=== PATIENT | male | born 1985 | race Caucasian/White ===

== ENCOUNTER 2017-12-26 09:19 | Emergency (ER) | payer OTHER ==
[~2017-12-26] VITALS: Ht 180.3 cm; Wt 86.2 kg
[2017-12-26 10:25] LABS: Influenza A Negative (NEGATIVE); Influenza B Positive (NEGATIVE)
[2017-12-26] MEDS ORDERED: Sudogest30 MG PO (10:30)
[2017-12-26] MEDS ORDERED: BENZ100A PO (10:30)
[2017-12-26] MEDS ORDERED: Flonase 0.05% N16 GM (10:30)
[2017-12-26] MEDS ORDERED: ALBU90OI INH (10:30)
[2017-12-26] MEDS ORDERED: Cheratussin AC118 ML PO (10:30)
[2018-04-12] MEDS ORDERED: NYST237S MT (22:02)
== END 2017-12-26 10:42 | disposition home or self-care (01) ==
LOC: ER 09:19
PROVIDERS: Physician Assistant
DX: J10.1 Influenza due to other identified influenza virus with other respiratory manifestations (principal); F17.210 Nicotine dependence, cigarettes, uncomplicated
CPT/HCPCS: 71046; 87804; 94640; 99284; J1100

== ENCOUNTER 2018-02-07 17:52 | Emergency (ER) | payer OTHER ==
[~2018-02-07] VITALS: Ht 180.3 cm; Wt 86.2 kg
[~2018-02-07 17:52] MED LIST: ALBU90OI INH; BENZ100A PO; Cheratussin AC118 ML PO; Flonase 0.05% N16 GM; Sudogest30 MG PO
[2018-02-07 20:13] LABS: BASOPHILS ABSOLUTE AUTO 0.06 K/mm3 (0.00-0.23); BASOPHILS PERCENT AUTO 1 % (0-2); EOSINOPHILS ABSOLUTE AUTO 0.13 K/mm3 (0.00-0.68); EOSINOPHILS PERCENT AUTO 2 % (0-6); Hematocrit 47.3 % (37.0-53.0); IMMATURE GRAN ABSOLUTE AUTO 0.02 K/mm3 (0.00-0.10); IMMATURE GRAN PERCENT AUTO 0 % (0-1); LYMPHOCYTES PERCENT AUTO 32 % (21-46); MONOCYTES ABSOLUTE AUTO 0.43 K/mm3 (0.16-1.47); MONOCYTES PERCENT AUTO 6 % (4-13); Mean Corpuscular HGB 30.1 pg (26.0-34.0); Mean Corpuscular HGB Conc 33.8 g/dL (31.5-36.5); Mean Corpuscular Volume 89 fL (80-100); Mean Platelet Volume 9.9 fL (9.1-12.4); NEUTROPHILS ABSOLUTE AUTO 4.63 K/mm3 (1.96-9.15); NEUTROPHILS PERCENT AUTO 60 % (41-73); Platelet Count 319 K/mm3 (150-400); RDW Coefficient Variation 11.9 % (11.7-14.2); Red Blood Cell Count 5.31 M/mm3 (4.30-5.90); White Blood Cell Count 7.77 K/mm3 (4.00-11.30)
[2018-02-07 20:17] LABS: Alanine Aminotransfer (ALT/SGP 30 U/L (12-78); Albumin, Blood 4.1 g/dL (3.4-5.0); Albumin/Globulin Ratio 1.2 (0.8-1.8); Alk Phos 69 U/L (50-136); Anion Gap 7 mmol/L (6-16); Aspartate Aminotrans (AST/SGOT 24 U/L (12-37); Bilirubin, Total 0.3 mg/dL (0.1-1.0); Blood Urea Nitrogen 13 mg/dL (8-24); Bun/Creatinine Ratio 13.1 (12.0-20.0); CO2, Blood 28 mmol/L (21-32); Chloride, Blood 104 mmol/L (98-108); Globulin, Blood 3.5 g/dL (2.2-4.0); Glomerular Filtration Rate >60 (60-); Glucose, Blood 87 mg/dL (70-99); Sodium, Blood 139 mmol/L (136-145); Total Protein, Blood 7.6 g/dL (6.4-8.2)
[2018-02-10 07:50] LABS: HCV Non Reactive (NR)
[2018-04-12] MEDS ORDERED: NYST237S MT (22:02)
== END 2018-02-07 21:12 | disposition home or self-care (01) ==
LOC: ER 17:52
PROVIDERS: Emergency Medicine
DX: Z20.5 Contact with and (suspected) exposure to viral hepatitis (principal); N48.89 Other specified disorders of penis; F17.210 Nicotine dependence, cigarettes, uncomplicated
CPT/HCPCS: 36415; 80053; 80074; 85025; 99283

== ENCOUNTER 2018-05-17 12:52 | Emergency (ER) | payer OTHER ==
[~2018-05-17] VITALS: Ht 180.3 cm; Wt 81.7 kg
[~2018-05-17 12:52] MED LIST changes: +NYST237S MT
[2018-05-17] MEDS ORDERED: Augmentin 875-1 EACH PO (14:39)
== END 2018-05-17 15:38 | disposition home or self-care (01) ==
LOC: ER 12:52
DX: J02.9 Acute pharyngitis, unspecified (principal); F17.210 Nicotine dependence, cigarettes, uncomplicated
CPT/HCPCS: 70491; 87081; 87430; 96361; 96365; 96375; 99284; J0295; J1100; J7030; Q9967

== ENCOUNTER 2019-01-26 16:42 | Emergency (ER) | payer OTHER ==
[~2019-01-26] VITALS: Ht 180.3 cm; Wt 93.0 kg
[~2019-01-26 16:42] MED LIST changes: +Augmentin 875-1 EACH PO
[2019-01-26] MEDS ORDERED: Norco 5-325 Ta1 EACH PO (17:56)
== END 2019-01-26 18:11 | disposition home or self-care (01) ==
LOC: ER 16:42
DX: S20.212A Contusion of left front wall of thorax, initial encounter (principal); M25.512 Pain in left shoulder; F17.210 Nicotine dependence, cigarettes, uncomplicated; W00.0XXA Fall on same level due to ice and snow, initial encounter
CPT/HCPCS: 71101; 73010; 99283-25

== ENCOUNTER 2019-07-04 12:00 | Day surgery (SDC) | payer OTHER ==
[~2019-07-04] VITALS: Ht 180.3 cm; Wt 85.2 kg
[~2019-07-04 12:00] MED LIST changes: +Norco 5-325 Ta1 EACH PO
== END 2019-07-04 16:24 | disposition home or self-care (01) ==
LOC: ORSCSDS 12:00
PROVIDERS: Student in an Organized Health Care Education/Training Program
PROC: 0DBK8ZX Excision of Ascending Colon, Via Natural or Artificial Opening Endoscopic, Diagnostic (ICD-10-PCS; principal; 2019-07-04 13:15)
PROC: 0DBL8ZX Excision of Transverse Colon, Via Natural or Artificial Opening Endoscopic, Diagnostic (ICD-10-PCS; principal; 2019-07-04 13:15)
DX: K92.1 Melena (principal); R19.4 Change in bowel habit; D12.2 Benign neoplasm of ascending colon; D12.3 Benign neoplasm of transverse colon; K57.30 Diverticulosis of large intestine without perforation or abscess without bleeding; K64.8 Other hemorrhoids; F17.210 Nicotine dependence, cigarettes, uncomplicated
CPT/HCPCS: 88305; J2250; J2704; J7120

== ENCOUNTER 2019-11-07 05:38 | Emergency (ER) | payer OTHER ==
[~2019-11-07] VITALS: Ht 180.3 cm; Wt 83.9 kg
[2019-11-07 06:35] LABS: BASOPHILS ABSOLUTE AUTO 0.05 K/mm3 (0.00-0.23); BASOPHILS PERCENT AUTO 1 % (0-2); EOSINOPHILS ABSOLUTE AUTO 0.14 K/mm3 (0.00-0.68); EOSINOPHILS PERCENT AUTO 2 % (0-6); Hematocrit 50.6 % (37.0-53.0); Hemoglobin 17.4 g/dL (13.5-17.5); IMMATURE GRAN ABSOLUTE AUTO 0.02 K/mm3 (0.00-0.10); IMMATURE GRAN PERCENT AUTO 0 % (0-1); LYMPHOCYTES ABSOLUTE AUTO 2.45 K/mm3 (0.84-5.20); LYMPHOCYTES PERCENT AUTO 30 % (21-46); MONOCYTES ABSOLUTE AUTO 0.49 K/mm3 (0.16-1.47); MONOCYTES PERCENT AUTO 6 % (4-13); Mean Corpuscular HGB 30.9 pg (26.0-34.0); Mean Corpuscular HGB Conc 34.4 g/dL (31.5-36.5); Mean Corpuscular Volume 90 fL (80-100); Mean Platelet Volume 10.5 fL (9.1-12.4); NEUTROPHILS ABSOLUTE AUTO 5.09 K/mm3 (1.96-9.15); NEUTROPHILS PERCENT AUTO 62 % (41-73); Platelet Count 348 K/mm3 (150-400); RDW Coefficient Variation 11.5 % (11.7-14.2); Red Blood Cell Count 5.63 M/mm3 (4.30-5.90); White Blood Cell Count 8.24 K/mm3 (4.00-11.30)
[2019-11-07 06:53] LABS: Alanine Aminotransfer (ALT/SGP 22 U/L (12-78); Albumin, Blood 4.5 g/dL (3.4-5.0); Albumin/Globulin Ratio 1.2 (0.8-1.8); Alk Phos 69 U/L (50-136); Anion Gap 10 mmol/L (6-16); Aspartate Aminotrans (AST/SGOT 20 U/L (12-37); Bilirubin, Total 0.7 mg/dL (0.1-1.0); Blood Urea Nitrogen 9 mg/dL (8-24); Bun/Creatinine Ratio 10.5 (12.0-20.0); CO2, Blood 23 mmol/L (21-32); Chloride, Blood 108 mmol/L (98-108); Creatinine, Blood 0.86 mg/dL (0.60-1.20); Globulin, Blood 3.6 g/dL (2.2-4.0); Glomerular Filtration Rate >60 (60-); Glucose, Blood 86 mg/dL (70-99); Potassium, Blood 3.8 mmol/L (3.5-5.5); Sodium, Blood 141 mmol/L (136-145); Total Protein, Blood 8.1 g/dL (6.4-8.2)
[2019-11-07] MEDS ORDERED: Prilosec Otc20 MG PO (09:05)
== END 2019-11-07 09:16 | disposition home or self-care (01) ==
LOC: ER 05:38
PROVIDERS: Emergency Medicine
DX: R07.9 Chest pain, unspecified (principal); R10.13 Epigastric pain; F10.10 Alcohol abuse, uncomplicated; R11.2 Nausea with vomiting, unspecified; F17.210 Nicotine dependence, cigarettes, uncomplicated
CPT/HCPCS: 36415; 71046; 80053; 83690; 85025; 93005; 93010; 96361; 96374; 96375; 99284-25; C9113; J2060; J2405; J2765; J7030

== ENCOUNTER 2019-11-09 05:46 | Emergency (ER) | payer OTHER ==
[~2019-11-09] VITALS: Ht 180.3 cm; Wt 81.7 kg
[~2019-11-09 05:46] MED LIST changes: +Prilosec Otc20 MG PO
[2019-11-09 07:08] LABS: BASOPHILS ABSOLUTE AUTO 0.06 K/mm3 (0.00-0.23); BASOPHILS PERCENT AUTO 1 % (0-2); EOSINOPHILS ABSOLUTE AUTO 0.17 K/mm3 (0.00-0.68); EOSINOPHILS PERCENT AUTO 2 % (0-6); Hematocrit 47.4 % (37.0-53.0); Hemoglobin 16.7 g/dL (13.5-17.5); IMMATURE GRAN ABSOLUTE AUTO 0.04 K/mm3 (0.00-0.10); IMMATURE GRAN PERCENT AUTO 0 % (0-1); LYMPHOCYTES ABSOLUTE AUTO 1.93 K/mm3 (0.84-5.20); LYMPHOCYTES PERCENT AUTO 18 % (21-46); MONOCYTES ABSOLUTE AUTO 0.63 K/mm3 (0.16-1.47); MONOCYTES PERCENT AUTO 6 % (4-13); Mean Corpuscular HGB 31.4 pg (26.0-34.0); Mean Corpuscular HGB Conc 35.2 g/dL (31.5-36.5); Mean Corpuscular Volume 89 fL (80-100); Mean Platelet Volume 10.2 fL (9.1-12.4); NEUTROPHILS ABSOLUTE AUTO 7.75 K/mm3 (1.96-9.15); NEUTROPHILS PERCENT AUTO 73 % (41-73); Platelet Count 339 K/mm3 (150-400); RDW Coefficient Variation 11.5 % (11.7-14.2); RDW Standard Deviation 37.3 fL (35.1-46.3); Red Blood Cell Count 5.32 M/mm3 (4.30-5.90); White Blood Cell Count 10.58 K/mm3 (4.00-11.30)
[2019-11-09 07:25] LABS: Alanine Aminotransfer (ALT/SGP 22 U/L (12-78); Albumin, Blood 4.4 g/dL (3.4-5.0); Albumin/Globulin Ratio 1.3 (0.8-1.8); Alk Phos 66 U/L (50-136); Anion Gap 11 mmol/L (6-16); Aspartate Aminotrans (AST/SGOT 25 U/L (12-37); Bilirubin, Total 1.1 mg/dL (0.1-1.0); Blood Urea Nitrogen 9 mg/dL (8-24); Bun/Creatinine Ratio 11.4 (12.0-20.0); CO2, Blood 22 mmol/L (21-32); Calcium, Blood 9.3 mg/dL (8.5-10.1); Chloride, Blood 107 mmol/L (98-108); Creatinine, Blood 0.79 mg/dL (0.60-1.20); Globulin, Blood 3.3 g/dL (2.2-4.0); Glomerular Filtration Rate >60 (60-); Glucose, Blood 100 mg/dL (70-99); Potassium, Blood 3.2 mmol/L (3.5-5.5); Sodium, Blood 140 mmol/L (136-145); Total Protein, Blood 7.7 g/dL (6.4-8.2)
[2019-11-09 07:52] LABS: Source, Urine Clean Catch
[2019-11-09 08:01] LABS: Bilirubin, Urine Neg (Neg); Blood, Urine Neg (Neg); Glucose Qualitative, Urine Neg (Neg); Ketones, Urine 4+ (Neg); Leukocyte Esterase, Urine 1+ (Neg); Nitrite, Urine Neg (Neg); Protein, Urine Neg (Neg); Specific Gravity, Urine 1.015 (1.003-1.022); Urobilinogen, Urine NORM (Normal)
[2019-11-09 08:05] LABS: Appearance, Urine Clear (Clear); Color, Urine Amber (P-Yellow)
[2019-11-09 08:08] LABS: Amorphous Light (0-Heavy); Bacteria Not Seen /hpf; Mucus Heavy (0-Heavy); Red Blood Cells, Urine Not Seen /hpf (0-2); Squamous Epithelial Cells Not Seen /hpf (Few); White Blood Cells, Urine 0-2 /hpf (0-5)
[2019-11-09] MEDS ORDERED: PROM25 PO (10:12)
[2019-11-09] MEDS ORDERED: OMEPRAZOLE MAGN20 MG PO (10:12)
== END 2019-11-09 10:22 | disposition home or self-care (01) ==
LOC: ER 05:46
PROVIDERS: Emergency Medicine
DX: K29.70 Gastritis, unspecified, without bleeding (principal); E86.0 Dehydration; E87.6 Hypokalemia; F17.210 Nicotine dependence, cigarettes, uncomplicated
CPT/HCPCS: 36415; 80053; 81001; 82272; 83690; 84484; 85025; 93005; 93010; 96361; 96374; 96375; 99284-25; C9113; J1170; J2405; J2550; J7120

== ENCOUNTER 2020-05-02 14:58 | Emergency (ER) | payer OTHER ==
[~2020-05-02] VITALS: Ht 180.3 cm; Wt 72.6 kg
[~2020-05-02 14:58] MED LIST changes: +OMEPRAZOLE MAGN20 MG PO; +PROM25 PO
[2020-05-02 15:34] LABS: BASOPHILS ABSOLUTE AUTO 0.06 K/mm3 (0.00-0.23); BASOPHILS PERCENT AUTO 1 % (0-2); EOSINOPHILS ABSOLUTE AUTO 0.01 K/mm3 (0.00-0.68); EOSINOPHILS PERCENT AUTO 0 % (0-6); Hematocrit 50.9 % (37.0-53.0); Hemoglobin 17.2 g/dL (13.5-17.5); IMMATURE GRAN ABSOLUTE AUTO 0.06 K/mm3 (0.00-0.10); IMMATURE GRAN PERCENT AUTO 1 % (0-1); LYMPHOCYTES PERCENT AUTO 10 % (21-46); MONOCYTES ABSOLUTE AUTO 0.42 K/mm3 (0.16-1.47); MONOCYTES PERCENT AUTO 3 % (4-13); Mean Corpuscular HGB 31.2 pg (26.0-34.0); Mean Corpuscular HGB Conc 33.8 g/dL (31.5-36.5); Mean Corpuscular Volume 92 fL (80-100); NEUTROPHILS ABSOLUTE AUTO 11.26 K/mm3 (1.96-9.15); NEUTROPHILS PERCENT AUTO 86 % (41-73); Platelet Count 375 K/mm3 (150-400); RDW Coefficient Variation 11.8 % (11.7-14.2); Red Blood Cell Count 5.51 M/mm3 (4.30-5.90); White Blood Cell Count 13.11 K/mm3 (4.00-11.30)
[2020-05-02 15:41] LABS: Source, Urine Clean Catch
[2020-05-02 15:48] LABS: Bilirubin, Urine Neg (Neg); Blood, Urine 1+ (Neg); Glucose Qualitative, Urine Neg (Neg); Ketones, Urine 4+ (Neg); Leukocyte Esterase, Urine 1+ (Neg); Nitrite, Urine Neg (Neg); Protein, Urine 1+ (Neg); Urobilinogen, Urine NORM (Normal)
[2020-05-02 15:55] LABS: Alanine Aminotransfer (ALT/SGP 28 U/L (12-78); Albumin, Blood 4.6 g/dL (3.4-5.0); Albumin/Globulin Ratio 1.3 (0.8-1.8); Alk Phos 69 U/L (50-136); Anion Gap 10 mmol/L (6-16); Aspartate Aminotrans (AST/SGOT 19 U/L (12-37); Blood Urea Nitrogen 17 mg/dL (8-24); Bun/Creatinine Ratio 21.5 (12.0-20.0); CO2, Blood 24 mmol/L (21-32); Calcium, Blood 9.9 mg/dL (8.5-10.1); Chloride, Blood 104 mmol/L (98-108); Creatinine, Blood 0.79 mg/dL (0.60-1.20); Globulin, Blood 3.6 g/dL (2.2-4.0); Glomerular Filtration Rate >60 (60-); Glucose, Blood 105 mg/dL (70-99); Potassium, Blood 4.2 mmol/L (3.5-5.5); Sodium, Blood 138 mmol/L (136-145); Total Protein, Blood 8.2 g/dL (6.4-8.2)
[2020-05-02 16:04] LABS: Appearance, Urine Clear (Clear); Color, Urine Yellow (P-Yellow)
[2020-05-02 16:05] LABS: U Amphetamine Screen Not Detected; U Barbituate Screen Not Detected; U Benzodiazapine Screen Not Detected; U Buprenorphine Screen Not Detected; U Cannabinoids Screen DETECTED; U Cocaine Screen Not Detected; U Methadone Screen Not Detected; U Methamphetamine Screen Not Detected; U Opiates Screen Not Detected; U Oxycodone Screen Not Detected; U Phencyclidine Screen Not Detected; U Propoxyphene Screen Not Detected; White Blood Cells, Urine 0-2 /hpf (0-5)
[2020-05-02 16:06] LABS: Bacteria Few /hpf; Mucus Light (0-Heavy); Squamous Epithelial Cells Not Seen /hpf (Few)
[2020-05-02] MEDS ORDERED: PHENERGAN25 MG PR (17:10)
[2020-05-02] MEDS ORDERED: PROM25 PO (17:10)
[2020-05-02] MEDS ORDERED: Protonix40 MG PO (17:10)
== END 2020-05-02 18:02 | disposition home or self-care (01) ==
LOC: ER 14:58
PROVIDERS: Emergency Medicine
DX: R10.31 Right lower quadrant pain (principal); R11.10 Vomiting, unspecified; F17.210 Nicotine dependence, cigarettes, uncomplicated; Z79.899 Other long term (current) drug therapy
CPT/HCPCS: 36415; 80053; 81001; 83690; 85025; 87086; 96361; 96374; 96375; 99284-25; C9113; G0480; J2060; J2405; J2765; J7030

== ENCOUNTER 2020-12-17 08:24 | Day surgery (SDC) | payer OTHER ==
[~2020-12-17] VITALS: Ht 180.3 cm; Wt 69.7 kg
[~2020-12-17 08:24] MED LIST changes: +OMEP20ER PO; +ONDA4 PO; +PHENERGAN25 MG PR; +Protonix40 MG PO
== END 2020-12-17 10:35 | disposition home or self-care (01) ==
LOC: ORSCSDS 08:24
PROVIDERS: Student in an Organized Health Care Education/Training Program
PROC: 0DBN8ZX Excision of Sigmoid Colon, Via Natural or Artificial Opening Endoscopic, Diagnostic (ICD-10-PCS; principal; 2020-12-17 09:45)
PROC: 0DBC8ZX Excision of Ileocecal Valve, Via Natural or Artificial Opening Endoscopic, Diagnostic (ICD-10-PCS; principal; 2020-12-17 09:45)
DX: Z86.010 Personal history of colon polyps (principal); K63.5 Polyp of colon; K57.30 Diverticulosis of large intestine without perforation or abscess without bleeding; K64.8 Other hemorrhoids; F17.210 Nicotine dependence, cigarettes, uncomplicated; Z79.899 Other long term (current) drug therapy
CPT/HCPCS: 88305; J2250; J2704; J7120

== ENCOUNTER 2021-05-02 18:21 | Emergency (ER) | payer OTHER ==
[~2021-05-02] VITALS: Ht 180.3 cm; Wt 74.8 kg
[2021-05-02 19:02] LABS: BASOPHILS ABSOLUTE AUTO 0.02 K/mm3 (0.00-0.23); BASOPHILS PERCENT AUTO 0 % (0-2); EOSINOPHILS PERCENT AUTO 0 % (0-6); Hematocrit 48.9 % (37.0-53.0); Hemoglobin 16.7 g/dL (13.5-17.5); IMMATURE GRAN ABSOLUTE AUTO 0.02 K/mm3 (0.00-0.10); IMMATURE GRAN PERCENT AUTO 0 % (0-1); LYMPHOCYTES ABSOLUTE AUTO 1.32 K/mm3 (0.84-5.20); LYMPHOCYTES PERCENT AUTO 15 % (21-46); MONOCYTES ABSOLUTE AUTO 0.37 K/mm3 (0.16-1.47); MONOCYTES PERCENT AUTO 4 % (4-13); Mean Corpuscular HGB 30.9 pg (26.0-34.0); Mean Corpuscular HGB Conc 34.2 g/dL (31.5-36.5); Mean Corpuscular Volume 91 fL (80-100); Mean Platelet Volume 9.9 fL (9.1-12.4); NEUTROPHILS ABSOLUTE AUTO 6.82 K/mm3 (1.96-9.15); NEUTROPHILS PERCENT AUTO 80 % (41-73); Platelet Count 341 K/mm3 (150-400); RDW Coefficient Variation 11.4 % (11.7-14.2); White Blood Cell Count 8.55 K/mm3 (4.00-11.30)
[2021-05-02 19:21] LABS: Alanine Aminotransfer (ALT/SGP 26 U/L (12-78); Albumin, Blood 4.6 g/dL (3.4-5.0); Albumin/Globulin Ratio 1.2 (0.8-1.8); Alk Phos 69 U/L (50-136); Anion Gap 4 mmol/L (6-16); Aspartate Aminotrans (AST/SGOT 16 U/L (12-37); Bilirubin, Total 0.7 mg/dL (0.1-1.0); Blood Urea Nitrogen 14 mg/dL (8-24); Bun/Creatinine Ratio 13.2 (12.0-20.0); CO2, Blood 29 mmol/L (21-32); Chloride, Blood 106 mmol/L (98-108); Creatinine, Blood 1.06 mg/dL (0.60-1.20); Globulin, Blood 3.8 g/dL (2.2-4.0); Glomerular Filtration Rate >60 (60-); Glucose, Blood 122 mg/dL (70-99); Potassium, Blood 4.2 mmol/L (3.5-5.5); Sodium, Blood 139 mmol/L (136-145); Total Protein, Blood 8.4 g/dL (6.4-8.2)
[2021-05-02 21:56] LABS: Source, Urine Voided
[2021-05-02 22:03] LABS: Bilirubin, Urine Neg (Neg); Blood, Urine 1+ (Neg); Glucose Qualitative, Urine Neg (Neg); Ketones, Urine 4+ (Neg); Leukocyte Esterase, Urine 1+ (Neg); Nitrite, Urine Neg (Neg); Protein, Urine 2+ (Neg); Specific Gravity, Urine 1.015 (1.003-1.022); Urobilinogen, Urine NORM (Normal)
[2021-05-02 22:12] LABS: Appearance, Urine Clear (Clear); Color, Urine Yellow (P-Yellow)
[2021-05-02 22:13] LABS: Amorphous Light (0-Heavy); Bacteria Few /hpf; Mucus Light (0-Heavy); Squamous Epithelial Cells Rare /hpf (Few)
[2021-05-03] MEDS ORDERED: PROM25 PO (00:01)
[2021-05-03] MEDS ORDERED: HYDR1TAB94 PO (00:01)
== END 2021-05-03 00:10 | disposition home or self-care (01) ==
LOC: ER 18:21
PROVIDERS: Physician Assistant
DX: K85.90 Acute pancreatitis without necrosis or infection, unspecified (principal); F17.210 Nicotine dependence, cigarettes, uncomplicated
CPT/HCPCS: 36415; 74177; 80053; 81001; 83690; 85025; 96361; 96374-59; 96375; 99284-25; J1790; J2405; J7030; Q9967

== ENCOUNTER 2021-07-14 08:54 | Emergency (ER) | payer OTHER ==
[~2021-07-14] VITALS: Ht 180.3 cm; Wt 74.4 kg
[~2021-07-14 08:54] MED LIST changes: +HYDR1TAB94 PO
[2021-07-14 11:16] LABS: SARS-Cov-2 (COVID-19) PCR, MMC NEGATIVE (NEGATIVE)
== END 2021-07-14 11:35 | disposition home or self-care (01) ==
LOC: ER 08:54
PROVIDERS: Physician Assistant
DX: J06.9 Acute upper respiratory infection, unspecified (principal); F17.210 Nicotine dependence, cigarettes, uncomplicated; Z20.822 Contact with and (suspected) exposure to COVID-19
CPT/HCPCS: 99284; U0004

== ENCOUNTER 2021-07-18 01:46 | Emergency (ER) | payer OTHER ==
[~2021-07-18] VITALS: Ht 180.3 cm; Wt 74.4 kg
[2021-07-18] MEDS ORDERED: IBUP800 PO (02:57)
== END 2021-07-18 03:05 | disposition home or self-care (01) ==
LOC: ER 01:46
DX: U07.1 COVID-19 (principal); F17.210 Nicotine dependence, cigarettes, uncomplicated
CPT/HCPCS: 99282

== ENCOUNTER 2022-02-12 10:14 | Emergency (ER) | payer OTHER ==
[~2022-02-12] VITALS: Ht 180.3 cm; Wt 74.8 kg
[~2022-02-12 10:14] MED LIST changes: +IBUP800 PO
[2022-02-12 11:10] LABS: BASOPHILS ABSOLUTE AUTO 0.07 K/mm3 (0.00-0.23); BASOPHILS PERCENT AUTO 0 % (0-2); EOSINOPHILS ABSOLUTE AUTO 0.28 K/mm3 (0.00-0.68); EOSINOPHILS PERCENT AUTO 2 % (0-6); Hematocrit 51.5 % (37.0-53.0); Hemoglobin 18.1 g/dL (13.5-17.5); IMMATURE GRAN ABSOLUTE AUTO 0.07 K/mm3 (0.00-0.10); IMMATURE GRAN PERCENT AUTO 0 % (0-1); LYMPHOCYTES ABSOLUTE AUTO 1.43 K/mm3 (0.84-5.20); LYMPHOCYTES PERCENT AUTO 9 % (21-46); MONOCYTES ABSOLUTE AUTO 0.59 K/mm3 (0.16-1.47); MONOCYTES PERCENT AUTO 4 % (4-13); Mean Corpuscular HGB 30.7 pg (26.0-34.0); Mean Corpuscular HGB Conc 35.1 g/dL (31.5-36.5); Mean Corpuscular Volume 87 fL (80-100); Mean Platelet Volume 9.9 fL (9.1-12.4); NEUTROPHILS ABSOLUTE AUTO 14.16 K/mm3 (1.96-9.15); NEUTROPHILS PERCENT AUTO 85 % (41-73); Platelet Count 326 K/mm3 (150-400); RDW Coefficient Variation 11.9 % (11.7-14.2); RDW Standard Deviation 38.4 fL (35.1-46.3)
[2022-02-12 11:45] LABS: Alanine Aminotransfer (ALT/SGP 24 U/L (12-78); Albumin, Blood 4.5 g/dL (3.4-5.0); Albumin/Globulin Ratio 1.3 (0.8-1.8); Alk Phos 75 U/L (50-136); Anion Gap 7 mmol/L (6-16); Aspartate Aminotrans (AST/SGOT 17 U/L (12-37); Blood Urea Nitrogen 16 mg/dL (8-24); Bun/Creatinine Ratio 20.4 (12.0-20.0); CO2, Blood 21 mmol/L (21-32); Calcium, Blood 9.7 mg/dL (8.5-10.1); Chloride, Blood 110 mmol/L (98-108); Creatinine, Blood 0.78 mg/dL (0.60-1.20); Globulin, Blood 3.5 g/dL (2.2-4.0); Glomerular Filtration Rate >60 (60-); Glucose, Blood 141 mg/dL (70-99); Potassium, Blood 3.8 mmol/L (3.5-5.5); Sodium, Blood 138 mmol/L (136-145)
[2022-02-12 12:25] LABS: Influenza A, PCR NEGATIVE (NEGATIVE); Influenza B, PCR NEGATIVE (NEGATIVE); Resp Syncytial Virus, PCR NEGATIVE (NEGATIVE); SARS-Cov-2 (COVID-19) PCR, MMC NEGATIVE (NEGATIVE)
[2022-02-12 13:09] LABS: U Amphetamine Screen Not Detected; U Barbituate Screen Not Detected; U Benzodiazapine Screen Not Detected; U Buprenorphine Screen Not Detected; U Cannabinoids Screen DETECTED; U Cocaine Screen Not Detected; U Methadone Screen Not Detected; U Methamphetamine Screen Not Detected; U Opiates Screen Not Detected; U Oxycodone Screen Not Detected; U Phencyclidine Screen Not Detected; U Propoxyphene Screen Not Detected
[2022-02-12] MEDS ORDERED: LOPE2C PO (13:09)
[2022-02-12] MEDS ORDERED: ONDA4ODT MM (13:09)
== END 2022-02-12 14:03 | disposition home or self-care (01) ==
LOC: ER 10:14
PROVIDERS: Emergency Medicine
DX: E86.0 Dehydration (principal); R11.2 Nausea with vomiting, unspecified; R19.7 Diarrhea, unspecified; Z20.822 Contact with and (suspected) exposure to COVID-19; F17.210 Nicotine dependence, cigarettes, uncomplicated
CPT/HCPCS: 0241U; 36415; 80053; 85025; 96361; 96374; 96375; 96376; 99284-25; A9270; J2405; J2765; J7030

== ENCOUNTER 2023-11-21 22:31 | Emergency (ER) | payer SELFPAY ==
[~2023-11-21] VITALS: Ht 180.3 cm; Wt 72.6 kg
[~2023-11-21 22:31] MED LIST changes: +HYDROCORTISONE30 GM PR; +LOPE2C PO; +ONDA4ODT MM
[2023-11-22] MEDS ORDERED: CEPH500 PO (00:26)
[2023-11-22] MEDS ORDERED: SULTRIDS PO (00:26)
[2023-11-22 00:40] VITALS: BP 132/85
== END 2023-11-22 00:43 | disposition home or self-care (01) ==
LOC: ER 22:31
DX: J34.0 Abscess, furuncle and carbuncle of nose (principal); L02.414 Cutaneous abscess of left upper limb; F15.10 Other stimulant abuse, uncomplicated; F17.210 Nicotine dependence, cigarettes, uncomplicated
CPT/HCPCS: 99283; A9270

== ENCOUNTER 2023-12-16 10:54 | Emergency (ER) | payer OTHER ==
[~2023-12-16] VITALS: Ht 180.3 cm; Wt 72.6 kg
[~2023-12-16 10:54] MED LIST changes: +CEPH500 PO; +SULTRIDS PO
[2023-12-16 11:27] LABS: BASOPHILS ABSOLUTE AUTO 0.06 K/mm3 (0.00-0.23); BASOPHILS PERCENT AUTO 1 % (0-2); EOSINOPHILS ABSOLUTE AUTO 0.51 K/mm3 (0.00-0.68); EOSINOPHILS PERCENT AUTO 6 % (0-6); Hematocrit 49.7 % (37.0-53.0); Hemoglobin 16.7 g/dL (13.5-17.5); IMMATURE GRAN ABSOLUTE AUTO 0.02 K/mm3 (0.00-0.10); IMMATURE GRAN PERCENT AUTO 0 % (0-1); LYMPHOCYTES ABSOLUTE AUTO 1.96 K/mm3 (0.84-5.20); LYMPHOCYTES PERCENT AUTO 24 % (21-46); MONOCYTES ABSOLUTE AUTO 0.52 K/mm3 (0.16-1.47); MONOCYTES PERCENT AUTO 6 % (4-13); Mean Corpuscular HGB 30.1 pg (26.0-34.0); Mean Corpuscular HGB Conc 33.6 g/dL (31.5-36.5); Mean Corpuscular Volume 90 fL (80-100); NEUTROPHILS ABSOLUTE AUTO 5.03 K/mm3 (1.96-9.15); NEUTROPHILS PERCENT AUTO 62 % (41-73); Platelet Count 370 K/mm3 (150-400); RDW Standard Deviation 39.8 fL (35.1-46.3); Red Blood Cell Count 5.54 M/mm3 (4.30-5.90)
[2023-12-16 12:37] LABS: Albumin, Blood 3.6 g/dL (3.4-5.0); Albumin/Globulin Ratio 0.9 (0.8-1.8); Bilirubin, Total 0.3 mg/dL (0.1-1.0); Bun/Creatinine Ratio 12.9 (12.0-20.0); Calcium, Blood 9.3 mg/dL (8.5-10.1); Creatinine, Blood 0.86 mg/dL (0.60-1.20); Globulin, Blood 4.2 g/dL (2.2-4.0); Potassium, Blood 4.6 mmol/L (3.5-5.5); Total Protein, Blood 7.8 g/dL (6.4-8.2)
[2023-12-16 13:06] LABS: Source, Urine Clean Catch
[2023-12-16 13:13] LABS: Appearance, Urine Clear (Clear); Bilirubin, Urine Neg (Neg); Blood, Urine Neg (Neg); Color, Urine Yellow (P-Yellow); Glucose Qualitative, Urine Neg (Neg); Ketones, Urine Neg (Neg); Leukocyte Esterase, Urine Neg (Neg); Nitrite, Urine Neg (Neg); Protein, Urine Neg (Neg); Urobilinogen, Urine NORM (Normal)
[2023-12-16 13:30] VITALS: BP 175/91
[2023-12-16] MEDS ORDERED: ACYC400 PO (13:44)
[2023-12-16] MEDS ORDERED: DOXY100 PO (13:44)
[2023-12-18 08:51] LABS: APTIMA MEDIA TYPE Urine; C. TRACHOMATIS BY TMA Negative (Negative); N. GONORRHOEAE BY TMA Negative (Negative); SPECIMEN SOURCE Urine
[2023-12-18 13:50] LABS: HIV 1,2 COMBO ANTIGEN/ANTIBODY Negative (Negative)
== END 2023-12-16 14:11 | disposition home or self-care (01) ==
LOC: ER 10:54
PROVIDERS: Emergency Medicine; Physician Assistant
DX: A60.01 Herpesviral infection of penis (principal); A60.02 Herpesviral infection of other male genital organs; B00.89 Other herpesviral infection; F17.210 Nicotine dependence, cigarettes, uncomplicated
CPT/HCPCS: 80053; 81003; 85025; 86592; 87389; 87491; 87591; 96372; 99284-25; A9270; J0696

== ENCOUNTER 2024-01-03 19:16 | Emergency (ER) | payer OTHER ==
[~2024-01-03] VITALS: Ht 180.3 cm; Wt 70.3 kg
[~2024-01-03 19:16] MED LIST changes: +ACYC400 PO; +DOXY100 PO
[2024-01-03 20:13] LABS: BASOPHILS ABSOLUTE AUTO 0.04 K/mm3 (0.00-0.23); BASOPHILS PERCENT AUTO 1 % (0-2); EOSINOPHILS ABSOLUTE AUTO 0.16 K/mm3 (0.00-0.68); EOSINOPHILS PERCENT AUTO 2 % (0-6); Hematocrit 48.7 % (37.0-53.0); Hemoglobin 16.5 g/dL (13.5-17.5); IMMATURE GRAN ABSOLUTE AUTO 0.01 K/mm3 (0.00-0.10); IMMATURE GRAN PERCENT AUTO 0 % (0-1); LYMPHOCYTES ABSOLUTE AUTO 2.82 K/mm3 (0.84-5.20); LYMPHOCYTES PERCENT AUTO 34 % (21-46); MONOCYTES ABSOLUTE AUTO 0.54 K/mm3 (0.16-1.47); MONOCYTES PERCENT AUTO 7 % (4-13); Mean Corpuscular HGB 30.3 pg (26.0-34.0); Mean Corpuscular HGB Conc 33.9 g/dL (31.5-36.5); Mean Corpuscular Volume 89 fL (80-100); Mean Platelet Volume 8.9 fL (9.1-12.4); NEUTROPHILS ABSOLUTE AUTO 4.75 K/mm3 (1.96-9.15); NEUTROPHILS PERCENT AUTO 57 % (41-73); Platelet Count 405 K/mm3 (150-400); RDW Coefficient Variation 12.3 % (11.7-14.2); RDW Standard Deviation 40.3 fL (35.1-46.3); Red Blood Cell Count 5.45 M/mm3 (4.30-5.90); White Blood Cell Count 8.32 K/mm3 (4.00-11.30)
[2024-01-03 20:35] LABS: Bilirubin, Total 0.4 mg/dL (0.1-1.0); Bun/Creatinine Ratio 12.3 (12.0-20.0); Calcium, Blood 9.6 mg/dL (8.5-10.1); Creatinine, Blood 0.89 mg/dL (0.60-1.20); Globulin, Blood 3.9 g/dL (2.2-4.0); Magnesium, Blood 2.2 mg/dL (1.6-2.4); Potassium, Blood 3.9 mmol/L (3.5-5.5); Total Protein, Blood 7.9 g/dL (6.4-8.2)
[2024-01-03] MEDS ORDERED: HYDROmorphone HCl/Pf 1MG SYR IV ONE (22:15)
[2024-01-03] MEDS ORDERED: Docusate Sodium/Senna 1 Tab PO ONE (23:35)
[2024-01-03] MEDS ORDERED: Polyethylene Glycol 3350 17 gm PO ONE (23:35)
[2024-01-03] MEDS ORDERED: Lidocaine 2% Jelly Uro-Jet TOP ONE (23:45)
[2024-01-03 23:50] VITALS: BP 145/97
[2024-01-03] MEDS ORDERED: RX Prepack 6 Tabs Oxycodone 5mg UD ONE (23:55)
== END 2024-01-03 23:57 | disposition home or self-care (01) ==
LOC: ER 19:16
PROVIDERS: Physician Assistant
DX: K64.8 Other hemorrhoids (principal); Z87.19 Personal history of other diseases of the digestive system; Z98.890 Other specified postprocedural states; Z79.52 Long term (current) use of systemic steroids; Z79.899 Other long term (current) drug therapy
CPT/HCPCS: 74177; 80053; 83735; 85025; 96374-59; 99284-25; A9270; J1170; Q9967

== ENCOUNTER 2024-01-11 18:09 | Inpatient (IN) | payer OTHER ==
[~2024-01-11] VITALS: Ht 180.3 cm; Wt 82.0 kg
[2024-01-11 18:45] LABS: BASOPHILS ABSOLUTE AUTO 0.13 K/mm3 (0.00-0.23); BASOPHILS PERCENT AUTO 1 % (0-2); EOSINOPHILS ABSOLUTE AUTO 0.06 K/mm3 (0.00-0.68); EOSINOPHILS PERCENT AUTO 0 % (0-6); Hematocrit 50.5 % (37.0-53.0); Hemoglobin 17.3 g/dL (13.5-17.5); IMMATURE GRAN ABSOLUTE AUTO 0.15 K/mm3 (0.00-0.10); IMMATURE GRAN PERCENT AUTO 1 % (0-1); LYMPHOCYTES ABSOLUTE AUTO 2.45 K/mm3 (0.84-5.20); LYMPHOCYTES PERCENT AUTO 10 % (21-46); MONOCYTES ABSOLUTE AUTO 1.33 K/mm3 (0.16-1.47); MONOCYTES PERCENT AUTO 6 % (4-13); Mean Corpuscular HGB 30.6 pg (26.0-34.0); Mean Corpuscular HGB Conc 34.3 g/dL (31.5-36.5); Mean Corpuscular Volume 89 fL (80-100); Mean Platelet Volume 8.8 fL (9.1-12.4); NEUTROPHILS ABSOLUTE AUTO 19.77 K/mm3 (1.96-9.15); NEUTROPHILS PERCENT AUTO 83 % (41-73); Platelet Count 358 K/mm3 (150-400); RDW Coefficient Variation 12.4 % (11.7-14.2); RDW Standard Deviation 41.1 fL (35.1-46.3); Red Blood Cell Count 5.65 M/mm3 (4.30-5.90); White Blood Cell Count 23.89 K/mm3 (4.00-11.30)
[2024-01-11 19:09] LABS: Albumin, Blood 3.4 g/dL (3.4-5.0); Albumin/Globulin Ratio 0.8 (0.8-1.8); Bilirubin, Total 0.9 mg/dL (0.1-1.0); Bun/Creatinine Ratio 11.6 (12.0-20.0); Calcium, Blood 9.2 mg/dL (8.5-10.1); Creatinine, Blood 0.95 mg/dL (0.60-1.20); Globulin, Blood 4.3 g/dL (2.2-4.0); Potassium, Blood 3.9 mmol/L (3.5-5.5); Total Protein, Blood 7.7 g/dL (6.4-8.2)
[2024-01-11] MEDS ORDERED: NS 1,000 ML IV SCH ×2 (21:30→22:05)
[2024-01-11] MEDS ORDERED: Acetaminophen 325 MG TABLET PO PRN (22:05)
[2024-01-11 23:40] VITALS: BP 151/72
[2024-01-12] MEDS ORDERED: HYDROcodone 5-APAP 325 TAB PO PRN (00:10)
[2024-01-12] MEDS ORDERED: Nicotine 21 MG PATCH TOP SCH (00:10)
--- NOTE | 2024-01-12 02:08 | NUR ---
REPORT REC'D FROM ER NURSE. PT ARRIVED TO ROOM AT 2320 VIA GURNEY FROM ER. PT ORIENTED TO ROOM, CALL LIGHT SYSTEM AND BED AND TV CONTROLS. PT STATES UNDERSTANDING AND DEMONSTRATES ABILITY TO USE. MEDS GIVEN PER ORDERS.
[2024-01-12 03:35] VITALS: BP 134/73
--- NOTE | 2024-01-12 04:40 | NUR ---
SHIFT SUMMARY PT HAS BEEN RESTING QUIETLY SINCE GETTING SETTLED IN ROOM. GIRLFRIEND AT BEDSIDE. OCTAVIAO PER EMAR. REPORTING PAIN IN RUE. MEDICATED FOR PAIN AFTER ARRIVAL TO THE FLOOR. PT REQUESTING LAB TO COME BACK LATER IN THE MORNING. WILL CONTINUE TO PROVIDE CARE AND MONITOR T/O SHIFT.
[2024-01-12] MEDS ORDERED: Vancomycin HCL 1,000 MG in NS 100 ML IV SCH (06:00)
[2024-01-12 06:44] LABS: BASOPHILS ABSOLUTE AUTO 0.06 K/mm3 (0.00-0.23); BASOPHILS PERCENT AUTO 0 % (0-2); EOSINOPHILS PERCENT AUTO 1 % (0-6); Hematocrit 46.9 % (37.0-53.0); Hemoglobin 15.9 g/dL (13.5-17.5); IMMATURE GRAN ABSOLUTE AUTO 0.06 K/mm3 (0.00-0.10); IMMATURE GRAN PERCENT AUTO 0 % (0-1); LYMPHOCYTES ABSOLUTE AUTO 1.83 K/mm3 (0.84-5.20); LYMPHOCYTES PERCENT AUTO 10 % (21-46); MONOCYTES ABSOLUTE AUTO 0.95 K/mm3 (0.16-1.47); MONOCYTES PERCENT AUTO 5 % (4-13); Mean Corpuscular HGB 30.5 pg (26.0-34.0); Mean Corpuscular HGB Conc 33.9 g/dL (31.5-36.5); Mean Corpuscular Volume 90 fL (80-100); NEUTROPHILS ABSOLUTE AUTO 14.93 K/mm3 (1.96-9.15); NEUTROPHILS PERCENT AUTO 83 % (41-73); Platelet Count 311 K/mm3 (150-400); RDW Coefficient Variation 12.5 % (11.7-14.2); RDW Standard Deviation 41.1 fL (35.1-46.3); Red Blood Cell Count 5.21 M/mm3 (4.30-5.90); White Blood Cell Count 18.03 K/mm3 (4.00-11.30)
[2024-01-12 07:07] LABS: Albumin, Blood 3.1 g/dL (3.4-5.0); Albumin/Globulin Ratio 0.8 (0.8-1.8); Bilirubin, Total 0.5 mg/dL (0.1-1.0); Bun/Creatinine Ratio 14.2 (12.0-20.0); Calcium, Blood 9.1 mg/dL (8.5-10.1); Creatinine, Blood 0.77 mg/dL (0.60-1.20); Globulin, Blood 3.8 g/dL (2.2-4.0); Potassium, Blood 3.7 mmol/L (3.5-5.5); Total Protein, Blood 6.9 g/dL (6.4-8.2)
[2024-01-12 07:38] VITALS: BP 126/77
[2024-01-12] MEDS ORDERED: Enoxaparin 40 MG/0.4 ML SYR SC SCH (09:00)
[2024-01-12] MEDS ORDERED: Lactobacil 2-S.Thermo-Bifido 1 1 Cap PO SCH (09:00)
[2024-01-12] MEDS ORDERED: Sennosides 8.6 MG Tab PO SCH (09:15)
--- NOTE | 2024-01-12 11:47 | NUR ---
Spiritual care consult received and processed. Lengthy visit with patient today. Patient shares personal information about his past and very recent poor choices, about the strong correlation he feels between he is not focused on God and those poor choices, and about his family unit complications. He is tearful at times as I hear confession and appears to be very raw about his desire to turn his life around for his three kids (ages 16, 7 and 5). He talks about his goals and his hopes and welcomes prayer. I normalize his experience, reinforce helpful perspectives, and provide therapeutic listening and prayer. Patient responded well and showed signs of greater resolve to change. I will continue to remain available to patient and family
[2024-01-12] MEDS ORDERED: Lactulose 20 GM/30 ML UDC PO ONE (14:05)
[2024-01-12] MEDS ORDERED: Ketorolac Tromethamine 30mg Vial IV ONE (14:05)
[2024-01-12 14:42] VITALS: BP 131/73
--- NOTE | 2024-01-12 17:59 | NUR ---
SHIFT SUMMARY PT AOX4, INDEPENDENT IN THE ROOM. MEDICATED FOR PAIN PER THE EMAR. PT STATES THE PAIN IS MORE PRESSURE. ICE PROVIDED WELL AND HE STATES SOME RELIEF. BOWEL CARE MEDICATIONS STARTED, PT HAS YET TO HAVE A BM. PT C/O R SIDED CHEST PAIN THIS SHIFT, EKG DONE. PROVIDER ASSESSED. MEDICATIONS PROVIDED PER THE EMAR. NO ACUTE CHANGES AT THIS TIME. CALL LIGHT WITHIN REACH, BED IN THE LOWEST POSITION. WILL REPORT TO ONCOMING NURSE.
[2024-01-12 19:15] VITALS: BP 131/75
[2024-01-12 21:28] LABS: Vancomycin, Trough 13.1 ug/mL (5.0-10.0)
[2024-01-12] MEDS ORDERED: CeFAZolin Sodium 2,000 MG in NS 50 ML IV SCH (21:33)
[2024-01-12] MEDS ORDERED: Vancomycin HCL 1,250 MG in NS 250 ML IV SCH (22:00)
[2024-01-13 02:06] VITALS: BP 131/67
--- NOTE | 2024-01-13 06:31 | NUR ---
SHIFT SUMMARY PT IS PLEASANT AND COOPERATIVE WITH CARE. VANCO INFUSING AT THIS TIME. R ARM CONTINUES TO BE RED, HOT AND EDEMATOUS. IT IS SPREADING SLIGHTLY PAST THE BORDER OF THE LINE I TALISHA AROUND IT ON 01/12/24. WILL CONTINUE TO MONITOR AND PROVIDE NURSING CARE T/O SHIFT.
[2024-01-13 07:30] VITALS: BP 140/99
--- NOTE | 2024-01-13 07:30 | NUR ---
ASSUMED CARE: PT RESTING QUIETLY IN BED. TALKING TO STAFF, IV ABX RUNNING. FRIEND AT BEDSIDE. CALL LIGHT IN REACH, DENIES NEEDS OR CONCERNS.
[2024-01-13] MEDS ORDERED: MEROPENEM IV SCH (16:00)
[2024-01-13] MEDS ORDERED: NS IV SCH (16:00)
--- NOTE | 2024-01-13 16:12 | NUR ---
A STAFF MEMBER WALKED NEXT TO PT'S ROOM AND NOTICED IV BEEPING. SHE CALLED THIS RN AND STATED THAT THERE WAS NO PT IN THE ROOM. APPEARS THAT BELONGINGS ARE GONE BUT NO ONE REPORTS HIM CHECKING OUT WITH ANYONE. CALL TO LISTED CELL NUMBER AND A WOMAN ANSWERED. SHE PROVIDED A PHONE NUMBER THAT DID NOT CONNECT. CALL TO SECURITY TO LOOK FOR HIM AND SECURITY STATED THEY WOULD CALL IF THEY FOUND HIM BUT NO CALL OF YET. CALL TO PT'S MOTHER WHO STATED THAT HE MENTIONED HE WAS THINKING ABOUT LEAVING. SHE PROVIDED A NEW NUMBER. THIS RN CALLED AND LEFT MESSAGE FOR PT TO CALL BACK. DR SOLARES HAS BEEN CALLED AND MADE AWARE.
--- NOTE | 2024-01-13 16:50 | NUR ---
PT DID NOT RETURN TO ROOM AFTER MULTIPLE ATTEMPTS TO REACH HIM. HE IS NOW CONSIDERED AMA AND DISCHARGED. DR CABEZAS
[2024-01-13] MEDS ORDERED: DAPTOmycin 500 MG in NS 50 ML IV SCH (17:00)
== END 2024-01-13 16:33 | disposition left against medical advice (07) | DRG 872 ==
LOC: ER 18:09 → MEDS 18:10
PROVIDERS: Family Medicine; Nurse Practitioner Acute Care; Student in an Organized Health Care Education/Training Program; ADMIT Student in an Organized Health Care Education/Training Program
DX: A41.9 Sepsis, unspecified organism (principal); L03.113 Cellulitis of right upper limb; E87.1 Hypo-osmolality and hyponatremia; F17.210 Nicotine dependence, cigarettes, uncomplicated; F15.10 Other stimulant abuse, uncomplicated
CPT/HCPCS: 36415; 73201; 80053; 80202; 83605; 85025; 87040; 93005; 93010; 96365-59; 96366; 99284-25; A9270; J1650; J1885; J3370; J7030; J7050; Q9967

== ENCOUNTER → 2024-11-07 | Outpatient (CLI) | payer OTHER ==
[2024-11-07 15:24] LABS: BASOPHILS ABSOLUTE AUTO 0.05 K/mm3 (0.00-0.23); BASOPHILS PERCENT AUTO 1 % (0-2); EOSINOPHILS ABSOLUTE AUTO 0.17 K/mm3 (0.00-0.68); EOSINOPHILS PERCENT AUTO 2 % (0-6); Hematocrit 49.1 % (37.0-53.0); Hemoglobin 16.9 g/dL (13.5-17.5); IMMATURE GRAN ABSOLUTE AUTO 0.04 K/mm3 (0.00-0.10); IMMATURE GRAN PERCENT AUTO 1 % (0-1); LYMPHOCYTES ABSOLUTE AUTO 2.43 K/mm3 (0.84-5.20); LYMPHOCYTES PERCENT AUTO 31 % (21-46); MONOCYTES ABSOLUTE AUTO 0.55 K/mm3 (0.16-1.47); MONOCYTES PERCENT AUTO 7 % (4-13); Mean Corpuscular HGB 30.7 pg (26.0-34.0); Mean Corpuscular HGB Conc 34.4 g/dL (31.5-36.5); Mean Corpuscular Volume 89 fL (80-100); Mean Platelet Volume 9.1 fL (9.1-12.4); NEUTROPHILS ABSOLUTE AUTO 4.74 K/mm3 (1.96-9.15); NEUTROPHILS PERCENT AUTO 59 % (41-73); Platelet Count 375 K/mm3 (150-400); RDW Standard Deviation 39.3 fL (35.1-46.3); White Blood Cell Count 7.98 K/mm3 (4.00-11.30)
[2024-11-07 15:40] LABS: Albumin/Globulin Ratio 1.1 (0.8-1.8); Bilirubin, Total 0.2 mg/dL (0.1-1.0); Bun/Creatinine Ratio 21.6 (12.0-20.0); Calcium, Blood 9.1 mg/dL (8.5-10.1); Creatinine, Blood 0.97 mg/dL (0.60-1.20); Globulin, Blood 3.8 g/dL (2.2-4.0); Potassium, Blood 4.3 mmol/L (3.5-5.5); Total Protein, Blood 7.8 g/dL (6.4-8.2)
== END ==
LOC: LAB 15:19 → LAB SHORT 15:19
PROVIDERS: Physician Assistant
DX: K92.1 Melena (principal)
CPT/HCPCS: 80053; 83690; 85025

== ENCOUNTER 2024-11-29 22:49 | Emergency (ER) | payer OTHER ==
[~2024-11-29] VITALS: Ht 177.8 cm; Wt 81.7 kg
[2024-11-30] MEDS ORDERED: Ibuprofen600 MG PO (01:25)
[2024-11-30 01:37] VITALS: BP 140/94
== END 2024-11-30 01:40 | disposition home or self-care (01) ==
LOC: ER 22:49
DX: S40.012A Contusion of left shoulder, initial encounter (principal); Y35.813A Legal intervention involving manhandling, suspect injured, initial encounter; F17.210 Nicotine dependence, cigarettes, uncomplicated
CPT/HCPCS: 71046; 73030; 73070; 99283-25